=== PATIENT | female | born 1970 | race Caucasian/White ===

== ENCOUNTER → 2020-10-20 | Outpatient (CLI) | payer BC | LOC: HEART 5 14:11 | DX: R00.0 Tachycardia, unspecified (principal) ==

== ENCOUNTER → 2020-11-22 | Outpatient (CLI) | payer BC | LOC: MAMO 10-21 10:30 | DX: Z12.31 Encounter for screening mammogram for malignant neoplasm of breast (principal) | CPT/HCPCS: 77063; 77067 ==

== ENCOUNTER → 2020-11-25 | Outpatient (CLI) | payer BC | LOC: HEART 5 09:43 | DX: R00.0 Tachycardia, unspecified (principal); I34.0 Nonrheumatic mitral (valve) insufficiency | CPT/HCPCS: 93306 ==

== ENCOUNTER → 2020-12-06 | Outpatient (CLI) | payer BC | LOC: US 12:32 | DX: R92.2 Inconclusive mammogram (principal); N60.01 Solitary cyst of right breast; N60.41 Mammary duct ectasia of right breast | CPT/HCPCS: 76641-LT; 76641-RT ==

== ENCOUNTER → 2021-06-09 | Outpatient (CLI) | payer BC | LOC: US 13:22 | DX: N60.02 Solitary cyst of left breast (principal); R92.2 Inconclusive mammogram | CPT/HCPCS: 76641-LT ==

== ENCOUNTER → 2022-04-19 | Outpatient (CLI) | payer BC | LOC: MAMO 12:57 | DX: N60.02 Solitary cyst of left breast (principal); R92.8 Other abnormal and inconclusive findings on diagnostic imaging of breast; R92.2 Inconclusive mammogram | CPT/HCPCS: 76641-LT; 77066; G0279 ==